=== PATIENT | male | born 1950 | race Caucasian/White ===

== ENCOUNTER 2016-09-17 05:57 | Day surgery (SDC) | payer OTHER ==
[~2016-09-17] VITALS: Ht 167.6 cm; Wt 72.6 kg
[~2016-09-17 05:57] MED LIST: ADVIL200 MG PO; ASPIR-LOW81 MG PO; ASPIRIN325 MG PO; HYDROCODON-ACE1 EAC7 PO; IBUPROFEN PM C1 EACH PO; LO-DOSE ASPIRIN81 M1 PO; LOPRESSOR50 MG PO; NORCO 5/3251 TABLET PO; PROTONIX40 MG PO
[2016-09-17 06:27] VITALS: BP 169/92
[2016-09-17 07:02] LABS: AMPHETAMINES QUANT VALUE 0 NG/ML; BARBITUATES QUANT VALUE 0 NG/ML; BENZODIAZEPINES QUANT VALUE 0 NG/ML; BENZODIAZEPINES, URINE SCREEN Negative (200 ng/mL); OPIATES QUANTITATIVE VALUE 0 NG/ML; PHENCYCLIDINE QUANT VALUE 0 NG/ML
[2016-09-17] MEDS ORDERED: NORCO 5/3251 TABLET PO (08:30)
[2016-09-17 09:07] VITALS: BP 133/79
[2016-09-17 10:20] VITALS: BP 148/90
== END 2016-09-17 10:20 | disposition home or self-care (01) ==
LOC: SDC 05:57
PROVIDERS: Surgery
PROC: 0H97XZZ Drainage of Abdomen Skin, External Approach (ICD-10-PCS; principal; 2016-09-17)
DX: M96.842 Postprocedural seroma of a musculoskeletal structure following a musculoskeletal system procedure (principal); Z79.82 Long term (current) use of aspirin
CPT/HCPCS: 80306 90; J0690; J1885; J2250; J2405; J3010; S0020